=== PATIENT | female | born 1955 | race Caucasian/White ===

== ENCOUNTER 2016-12-22 14:02 | Emergency (ER) | payer OTHER, SELFPAY ==
[2016-12-22] MEDS ORDERED: Acetaminophen/Codeine 30-300mg Tablet ONE (15:12)
--- NOTE | 2016-12-22 16:32 | RAD ---
TWO VIEWS CHEST: Date: 12-22-16 Comparison: None. History: Trauma. FINDINGS: There is no pneumothorax, pleural fluid, lobar consolidation or alveolar edema. Heart and mediastin al contours are grossly unremarkable. No acute osseous abnormality. There is a subtle area of asymmetric density lateral to the left heart border on the frontal film, s ignificance uncertain. This likely represents volume loss and/or vascular structures. Nodule canno t be excluded but is felt less likely. IMPRESSION: Minimal asymmetric density lateral to the left heart border as above. As a conservative measure, a follow up two view examination of the chest in 4-6 weeks is advised. No lobar consolidation or alve olar edema. POS: [facility]
--- NOTE | 2016-12-22 16:33 | RAD ---
TWO VIEWS OF THE LUMBAR SPINE 12/22/16 COMPARISON: None. HISTORY: Trauma. FINDINGS: There is mild anterior wedging of the T11 vertebral body suggesting an age indeterminate anterior we dge compression fracture of T11. Five lumbar type vertebral bodies are present with intact pedicles on frontal imaging. Lateral imagi ng demonstrates normal lumbar spine vertebral body height and alignment. There is degenerative krishnamurthy e at the L5-S1 level with disc space narrowing and a vacuum disc. There is lower lumbar spine facet hypertrophy. IMPRESSION: 1. Mild age indeterminate anterior wedge compression fracture of T11. 2. No fracture of the lumbar spine noted. 3. Lower lumbar spine degenerative change. POS: [facility]
--- NOTE | 2016-12-22 16:43 | CT ---
CT OF THE THORACIC SPINE WITHOUT CONTRAST: Indication: Trauma. FINDINGS: There is a superior endplate compression fracture of T11 with approximate loss of 20% of height. This is new from the comparison dated 06-07-16. There is diffuse osteopenia. There is minimal retropulsion of bone fragments of the posterior super ior margin of T11. This causes minimal effacement of the ventral spinal canal without definite zayra l narrowing. No additional acute osseous abnormality is evident. There is a cavitated pulmonary nodule within the right upper lobe on image 32 measuring 9 mm. There is scattered emphysema within the lungs. IMPRESSION: 1. Superior endplate compression abnormality of T11 with approximate 20% loss of height. 2. Mild retropulsion of bone fragments from the posterior superior margin of T11 causes mild encroa chment on the anterior aspect of the spinal canal without severe narrowing. 3. No additional acute fracture is evident. 4. Multilevel spondylosis of the thoracic spine. 5. Cavitated pulmonary nodule in the right upper lobe. Dedicated CT of the thorax with IV contrast is recommended for additional characterization. Code T POS: [facility]
--- NOTE | 2016-12-22 17:49 | ERRECORD ---
[facility] EMERGENCY RECORD HPI FALL (15:20 LHOD) CHIEF COMPLAINT: Patient presents for evaluation of fall. HISTORIAN: History provided by patient. TIME COURSE: YESTERDAY APPROX. 1300 PT REPORTS SHE WAS PUSHING A WASHMACHINE ON A DAYLIN WHEN IT FELL, FALLING BACK ON HER. IT PINNED HER TO THE GROUND FOR APPROX. 20 MINUTES. RIGHT NOW SHE C/O PAIN FROM HER MID BACK TO LOWER BACK. UNCLEAR WHY SHE WAITED UNTIL TODAY TO COME TO ED. ROS (15:34 LHOD) CONSTITUTIONAL: Historian denies fever. CARDIOVASCULAR: Historian reports chest pain, REPORTS PAINS FROM MID CHEST TO LOWER BACK, FRONT AND BACK. RESPIRATORY: Historian denies shortness of breath. GI: Historian reports abdominal pain, denies nausea, denies vomiting. GENITOURINARY FEMALE: Historian denies hematuria. MUSCULOSKELETAL: Historian reports back pain, denies neck pain. SKIN: NO BRUISING OR WOUNDS. NEUROLOGIC: Historian denies focal weakness, denies headache. HEMO/LYMPHATIC: Historian reports easy bruising, ON ASA. NOTES: All systems reviewed, negative except as described above. PAST MEDICAL HISTORY MEDICAL HISTORY: Notes: VERIFIED 12-22-16, Past medical history includes neurological disease, ischemic cerebral vascular accident, transient ischemic attack, Notes: HEPATITIS C+, Flu vaccine up to date, Tetanus immunization up to date, Pneumococcal vaccine up to date, Past medical history includes cardiac history, coronary artery disease, Past medical history includes pulmonary disease, asthma, chronic obstructive pulmonary disease. Verified with patient 06/08/16. (TueDec 22, 2016 14:14 JPER) FEMALE SURGICAL HISTORY: VERIFIED 12-22-16, Surgical history of cholecystectomy, Surgical history of appendectomy. Verified with patient 06/08/16. (TueDec 22, 2016 14:14 JPER) PSYCHIATRIC HISTORY: Notes: VERIFIED 12-22-16, Psychiatric history includes, anxiety, bipolar disorder, depression. Verified with patient 06/08/16. (TueDec 22, 2016 14:14 JPER) SOCIAL HISTORY: Patient drinks socially, rarely, Patient denies drug use, Patient currently uses tobacco, smokes cigarettes, 5 per week. Verified with patient 06/08/16. (TueDec 22, 2016 14:14 JPER) NOTES: Nursing records reviewed. (16:31 LHOD) KNOWN ALLERGIES nkda (Unconfirmed) &a-1R&a+25V*p+0X*[id number]*c202B*c15G*c2P*p-0X&a-25V&a+1R Name: Leigha Gross : 1955 F61 MedRec: [id number] AcctNum: [id number] Prepared: TueDec 22, 2016 17:58 by Interface Page 1 of 3 pMD [facility] EMERGENCY RECORD No Known Drug Allergies (Unconfirmed) CURRENT MEDICATIONS SEROquel: TABLET : Strength - 100 mg : ORAL Patient Dose: 150 mg Oral once a day (in the morning). (14:15 JPER) Lexapro: TABLET : Strength - 20 mg : ORAL Patient Dose: once a day (in the morning). (14:16 JPER) omeprazole: CAPSULE,DELAYED RELEASE (ENTERIC COATED) : Strength - 20 mg : ORAL Patient Dose: once a day (in the morning). (14:16 JPER) VITAL SIGNS (14:12 JPER) VITAL SIGNS: BP: 166/91, Pulse: 80, Resp: 18, Temp: 98.1 (Tympanic), O2 sat: 96 on Room Air, Time: 12/22/2016 14:12. PHYSICAL EXAM (16:12 LHOD) CONSTITUTIONAL: Vital signs reviewed, Patient afebrile, Pulse normal, Blood pressure normal, Respiratory rate normal, Patient appears in pain, in moderate pain distress, Patient alert and oriented to person, place and time. HEAD: Head exam included findings of head atraumatic. EYES: Pupils equally round and reactive to light, Extraocular muscles intact. ENT: ENT exam normal. NECK: Neck exam included findings of normal range of motion, Trachea midline. RESPIRATORY CHEST: Respiratory exam included findings of no respiratory distress, Breath sounds clear, Tenderness, mild, diffusely. CARDIOVASCULAR: Cardiovascular exam included findings of heart rate regular rate and rhythm. ABDOMEN FEMALE: Abdominal exam included findings of abdomen nontender. BACK: Tenderness, MID TO LOWER MIDLINE, no pain with straight leg raise. UPPER EXTREMITY: Upper extremity exam normal. LOWER EXTREMITY: Lower extremity exam normal. NEURO: Neuro exam findings include patient oriented to person, place and time, Miguel coma scale 15, Speech normal, Gait normal, no focal motor deficits, no focal sensory deficits. SKIN: NO BRUISING OR OPEN WOUNDS. RADIOLOGYINTERPRETATION BACK: Lumbar spine films negative, Thoracic spine CT shows, compression fracture, subluxation of T11, no cord compression, Other findings: APPROX. 20 % LOSS OF HEIGHT. (17:48 LHOD) &a-1R&a+25V*p+0X*i7149K*c202B*c15G*c2P*p-0X&a-25V&a+1R Name: Leigha Gross : 1955 F61 MedRec: [id number] AcctNum: [id number] Prepared: TueDec 22, 2016 17:58 by Interface Page 2 of 3 pMD [facility] EMERGENCY RECORD CHEST: Films of the chest show, Other findings: T 11 COMPRESSION FX. (16:31 LHOD) MEDICATION ADMINISTRATION SUMMARY Drug Name: Tylenol-Codeine #3, Dose Ordered: 2 tab(s), Route: Oral, Status: Given, Time: 15:12 12/22/2016, Detailed record available in Medication Service section. DOCTOR NOTES (17:48 LHOD) TEXT: WITH CT OF T-SPINE---INCIDENTAL FINDING OF 4 MM NODULE RIGHT UPPER LUNG FIELD. FOLLOW UP OF THIS ADVISED. I DID COMMUNICATE TO THE PATIENT THAT SHE NEEDS TO HAVE THIS FOLLOWED UP BY HER PMD WITH CT SCAN. SHE STATES SHE UNDERSTANDS. PROBLEM LIST No recorded problems DIAGNOSIS (15:59 LHOD) FINAL: PRIMARY: T11 WEDGE FRACTURE. PRESCRIPTION (15:59 LHOD) Tylenol-Codeine #3: TABLET : 300 mg-30 mg : ORAL : Quantity: 1-2 Unit: tab(s) Route: ORAL Schedule: every 4 hours prn Dispense: 30 May substitute. Refills: No Refills . NOTES: No Refills. DISPOSITION PATIENT: Disposition Type: Discharge, Disposition: *Discharge Home, Condition: Good. (15:59 LHOD) Patient left the department. (17:41 [facility]) Nova: GERARDO=ENOC Allen, Beverly LHOD=MD Cristofer, Raúl &a-1R&a+25V*p+0X*q8420D*c202B*c15G*c2P*p-0X&a-25V&a+1R Name: Leigha Gross : 1955 F61 MedRec: [id number] AcctNum: [id number] Prepared: Greg Dec 22, 2016 17:58 by Interface Page 3 of 3 pMD MTDD
--- NOTE | 2016-12-22 18:10 | PICIS ---
[facility] EMERGENCY RECORD TRIAGE (TueDec 22, 2016 14:14 JPER) PATIENT: NAME: Leigha Gross, AGE: 61, GENDER: female, : [facility] 1955, TIME OF GREET: TueDec 22, 2016 14:03, PREFERRED LANGUAGE: Persian, RACE: WHITE, ETHNICITY: Not or , FALL RISK: NO, ECODE BILLING MAP: [facility], SSN: [id number], Zip Code: [address], KG WEIGHT: 77.11, PHONE: , , , PERSON ID: [id number], PCP: NO PCP. (TueDec 22, 2016 14:14 JPER) COMPLAINT: WASHING MACHINE FELL ON PT. (TueDec 22, 2016 14:14 JPER) ADMISSION: URGENCY: 4 Non Urgent, ADMISSION SOURCE: Home, TRANSPORT: Walk-in, BED: ED -03. (TueDec 22, 2016 14:14 JPER) ASSESSMENT: Assessment: PT C/O UPPER BACKPAIN ONSET YEST AFTER SHE SAYS A WASHING MACHINE FELL ON HER YEST. (TueDec 22, 2016 14:14 JPER) PAIN: Patient complains of pain described as, aching, on a scale 0-10 patient rates pain as 9, Pain is constant, No aggravating factors, No relieving factors. (TueDec 22, 2016 14:14 JPER) IMMUNIZATIONS: Flu vaccine up to date, Tetanus immunization up to date, Pneumococcal vaccine up to date. (TueDec 22, 2016 14:14 JPER) SIRS SCORING: Heart Rate 55-109 (0), Temp range 96.8-101.1 (0), respiratory rate 12-24 (0), Mental Status altered: no (0). (TueDec 22, 2016 14:14 JPER) TRIAGE SCREENING: Patient denies suicidal ideation, Patient denies presence of domestic violence. (TueDec 22, 2016 14:14 JPER) PROVIDERS: TRIAGE NURSE: Bevelry Allen RN. (TueDec 22, 2016 14:14 JPER) VITAL SIGNS: BP 166/91, Pulse 80, Resp 18, Temp 98.1, (Tympanic), O2 Sat 96, on Room Air, Time 12/22/2016 14:12. (14:12 JPER) PREVIOUS VISIT ALLERGIES: nkda. (TueDec 22, 2016 14:14 JPER) KNOWN ALLERGIES nkda (Unconfirmed) No Known Drug Allergies (Unconfirmed) CURRENT MEDICATIONS SEROquel: TABLET : Strength - 100 mg : ORAL Patient Dose: 150 mg Oral once a day (in the morning). (14:15 JPER) Lexapro: TABLET : Strength - 20 mg : ORAL Patient Dose: once a day (in the morning). (14:16 JPER) omeprazole: CAPSULE,DELAYED RELEASE (ENTERIC COATED) : Strength - 20 mg : ORAL Patient Dose: once a day (in the morning). (14:16 JPER) VITAL SIGNS (14:12 JPER) VITAL SIGNS: BP: 166/91, Pulse: 80, Resp: 18, Temp: 98.1 &a-1R&a+25V*p+0X*l5666K*c202B*c15G*c2P*p-0X&a-25V&a+1R Name: Leigha Gross : 1955 F61 MedRec: [id number] AcctNum: [id number] Prepared: TueDec 22, 2016 18:05 by Interface Page 1 of 7 pMD [facility] EMERGENCY RECORD (Tympanic), O2 sat: 96 on Room Air, Time: 12/22/2016 14:12. NURSING ASSESSMENT: BACK (14:25 JPER) CONSTITUTIONAL: Patient arrives ambulatory, Gait steady, History obtained from patient, Patient appears comfortable, Patient cooperative, Patient alert, Oriented to person, place and time, Skin warm, Skin dry, Skin normal in color, Mucous membranes pink, Mucous membranes moist, Patient complains of C/O UPPER BACK PAIN. PAIN: aching pain, to the upper back, on a scale 0-10 patient rates pain as 9, Pain exacerbated by nothing, Nothing has been tried to alleviate the pain. BACK: Right radial pulse +3(easily palpated, considered normal), Left radial pulse +3(easily palpated, considered normal). NECK: Neck assessment findings include trachea midline. NOTES: Emotional support needed and given. NURSING PROCEDURE: DISCHARGE NOTE (17:15 JPER) DISCHARGE: Patient eloped. SAFETY: Notes: PT LEFT WITHOUT DISCHARGE OR RX; NO TRANSPORTATION SEEN. NURSING PROCEDURE: NURSE NOTES (16:15 JPER) NURSES NOTES: Notes: PT READY FOR DC; WAITING RIDE TO ARRIVE. ORDER DETAILS Order Name: CT Thoracic Spine WO Con, Status: Active, Time: 14:58 12/22/2016, User: SIDRA, - Ordered for: MD Cleveland Lefayne, - Entered by: MD Cleveland Lefayne - TueDec 22, 2016 14:58, - Quantity: 1, Order Name: XR Chest Pa & Lat STANDARD, Status: Active, Time: 14:26 12/22/2016, User: SIDRA, - Ordered for: MD Cleveland Lefayne, - Entered by: MD Cleveland Lefayne - TueDec 22, 2016 14:26, - Quantity: 1, Order Name: XR Lumbar Spine 2 Or 3 View, Status: Active, Time: 14:26 12/22/2016, User: SIDRA, - Ordered for: MD Cleveland Lefayne, - Entered by: MD Cleveland Lefayne - TueDec 22, 2016 14:26, - Quantity: 1. MEDICATION ADMINISTRATION SUMMARY Drug Name: Tylenol-Codeine #3, Dose Ordered: 2 tab(s), Route: Oral, Status: Given, Time: 15:12 12/22/2016, Detailed record available in Medication Service section. MEDICATION SERVICE (15:12 OD) &a-1R&a+25V*p+0X*l3700I*c202B*c15G*c2P*p-0X&a-25V&a+1R Name: Leigha Gross : 1955 F61 MedRec: [id number] AcctNum: [id number] Prepared: TueDec 22, 2016 18:05 by Interface Page 2 of 7 pMD [facility] EMERGENCY RECORD Tylenol-Codeine #3: Order: Tylenol-Codeine #3 (acetaminophen/codeine phosphate) - Dose: 2 tab(s) : Oral Ordered by: Raúl Cleveland MD Entered by: Raúl Cleveland MD TueDec 22, 2016 14:26 Documented as given by: Beverly Allen RN TueDec 22, 2016 15:12 Patient, Medication, Dose, Route and Time verified prior to administration. Amount given: 2TABS, Site: Medication administered P.O., Correct patient, time, route, dose and medication confirmed prior to administration, Patient advised of actions and side-effects prior to administration, Allergies confirmed and medications reviewed prior to administration, Administered by THOMAS STUBBS, Patient in position of comfort, Side rails up, Cart in lowest position, Family at bedside. HPI FALL (15:20 LHOD) CHIEF COMPLAINT: Patient presents for evaluation of fall. HISTORIAN: History provided by patient. TIME COURSE: YESTERDAY APPROX. 1300 PT REPORTS SHE WAS PUSHING A WASHMACHINE ON A DAYLIN WHEN IT FELL, FALLING BACK ON HER. IT PINNED HER TO THE GROUND FOR APPROX. 20 MINUTES. RIGHT NOW SHE C/O PAIN FROM HER MID BACK TO LOWER BACK. UNCLEAR WHY SHE WAITED UNTIL TODAY TO COME TO ED. ROS (15:34 LHOD) CONSTITUTIONAL: Historian denies fever. CARDIOVASCULAR: Historian reports chest pain, REPORTS PAINS FROM MID CHEST TO LOWER BACK, FRONT AND BACK. RESPIRATORY: Historian denies shortness of breath. GI: Historian reports abdominal pain, denies nausea, denies vomiting. GENITOURINARY FEMALE: Historian denies hematuria. MUSCULOSKELETAL: Historian reports back pain, denies neck pain. SKIN: NO BRUISING OR WOUNDS. NEUROLOGIC: Historian denies focal weakness, denies headache. HEMO/LYMPHATIC: Historian reports easy bruising, ON ASA. NOTES: All systems reviewed, negative except as described above. PAST MEDICAL HISTORY MEDICAL HISTORY: Notes: VERIFIED 12-22-16, Past medical history includes neurological disease, ischemic cerebral vascular accident, transient ischemic attack, Notes: HEPATITIS C+, Flu vaccine up to date, Tetanus immunization up to date, Pneumococcal vaccine up to date, Past medical history includes cardiac history, coronary artery disease, Past medical history includes pulmonary disease, asthma, chronic obstructive pulmonary disease. Verified with patient 06/08/16. (TueDec 22, 2016 14:14 GERARDO) FEMALE SURGICAL HISTORY: VERIFIED 12-22-16, Surgical history of cholecystectomy, Surgical history of &a-1R&a+25V*p+0X*m9627H*c202B*c15G*c2P*p-0X&a-25V&a+1R Name: Leigha Gross : 1955 F61 MedRec: [id number] AcctNum: [id number] Prepared: TueDec 22, 2016 18:05 by Interface Page 3 of 7 pMD [facility] EMERGENCY RECORD appendectomy. Verified with patient 06/08/16. (TueDec 22, 2016 14:14 JPER) PSYCHIATRIC HISTORY: Notes: VERIFIED 12-22-16, Psychiatric history includes, anxiety, bipolar disorder, depression. Verified with patient 06/08/16. (TueDec 22, 2016 14:14 JPER) SOCIAL HISTORY: Patient drinks socially, rarely, Patient denies drug use, Patient currently uses tobacco, smokes cigarettes, 5 per week. Verified with patient 06/08/16. (TueDec 22, 2016 14:14 JPER) NOTES: Nursing records reviewed. (16:31 LHOD) PHYSICAL EXAM (16:12 LHOD) CONSTITUTIONAL: Vital signs reviewed, Patient afebrile, Pulse normal, Blood pressure normal, Respiratory rate normal, Patient appears in pain, in moderate pain distress, Patient alert and oriented to person, place and time. HEAD: Head exam included findings of head atraumatic. EYES: Pupils equally round and reactive to light, Extraocular muscles intact. ENT: ENT exam normal. NECK: Neck exam included findings of normal range of motion, Trachea midline. RESPIRATORY CHEST: Respiratory exam included findings of no respiratory distress, Breath sounds clear, Tenderness, mild, diffusely. CARDIOVASCULAR: Cardiovascular exam included findings of heart rate regular rate and rhythm. ABDOMEN FEMALE: Abdominal exam included findings of abdomen nontender. BACK: Tenderness, MID TO LOWER MIDLINE, no pain with straight leg raise. UPPER EXTREMITY: Upper extremity exam normal. LOWER EXTREMITY: Lower extremity exam normal. NEURO: Neuro exam findings include patient oriented to person, place and time, Miguel coma scale 15, Speech normal, Gait normal, no focal motor deficits, no focal sensory deficits. SKIN: NO BRUISING OR OPEN WOUNDS. EVENTS TRANSFER: Triage to Emergency Main ED -03. (TueDec 22, 2016 14:14 JPER) Removed from Emergency Main ED -03. (17:41 JPER) RADIOLOGYINTERPRETATION BACK: Lumbar spine films negative, Thoracic spine CT shows, compression fracture, subluxation of T11, no cord compression, Other findings: APPROX. 20 % LOSS OF HEIGHT. (17:48 LHOD) CHEST: Films of the chest show, Other findings: T 11 &a-1R&a+25V*p+0X*k4153Y*c202B*c15G*c2P*p-0X&a-25V&a+1R Name: Leigha Gross : 1955 F61 MedRec: [id number] AcctNum: [id number] Prepared: TueDec 22, 2016 18:05 by Interface Page 4 of 7 pMD [facility] EMERGENCY RECORD COMPRESSION FX. (16:31 LHOD) DOCTOR NOTES (17:48 LHOD) TEXT: WITH CT OF T-SPINE---INCIDENTAL FINDING OF 4 MM NODULE RIGHT UPPER LUNG FIELD. FOLLOW UP OF THIS ADVISED. I DID COMMUNICATE TO THE PATIENT THAT SHE NEEDS TO HAVE THIS FOLLOWED UP BY HER PMD WITH CT SCAN. SHE STATES SHE UNDERSTANDS. PROBLEM LIST No recorded problems DIAGNOSIS (15:59 LHOD) FINAL: PRIMARY: T11 WEDGE FRACTURE. DISPOSITION PATIENT: Disposition Type: Discharge, Disposition: *Discharge Home, Condition: Good. (15:59 LHOD) Patient left the department. (17:41 JPER) INSTRUCTION (16:00 LHOD) DISCHARGE: FRACTURE COMPRESSION VERTEBRAL. FOLLOWUP: Follow up with Specialist as soon as possible. SPECIAL: DO NOT LIFT MORE THAN 5 POUNDS. FOLLOW UP WITH AN ORTHOPEDIC BACK SPECIALIST SOON POSSIBLE. RETURN OR CALL 911 FOR INCREASING PAIN OR WEAKNESS. PRESCRIPTION (15:59 LHOD) Tylenol-Codeine #3: TABLET : 300 mg-30 mg : ORAL : Quantity: 1-2 Unit: tab(s) Route: ORAL Schedule: every 4 hours prn Dispense: 30 May substitute. Refills: No Refills . NOTES: No Refills. ADMIN (17:50 LHOD) DIGITAL SIGNATURE: MD Cleveland Lefayne. RESULTS (16:51 LHOD) RADIOLOGY: XR Lumbar Spine 2 Or 3 View Observe DT: TueDec 22, 2016 14:28, LSP3 TWO VIEWS OF THE LUMBAR SPINE 12/22/16 COMPARISON: None. HISTORY: Trauma. FINDINGS: &a-1R&a+25V*p+0X*p8955L*c202B*c15G*c2P*p-0X&a-25V&a+1R Name: Leigha Gross DOB: 1955 F61 MedRec: [id number] AcctNum: [id number] Prepared: TueDec 22, 2016 18:05 by Interface Page 5 of 7 pMD [facility] EMERGENCY RECORD There is mild anterior wedging of the T11 vertebral body suggesting an age indeterminate anterior we dge compression fracture of T11. Five lumbar type vertebral bodies are present with intact pedicles on frontal imaging. Lateral imagi ng demonstrates normal lumbar spine vertebral body height and alignment. There is degenerative krishnamurthy e at the L5-S1 level with disc space narrowing and a vacuum disc. There is lower lumbar spine facet hypertrophy. IMPRESSION: 1. Mild age indeterminate anterior wedge compression fracture of T11. 2. No fracture of the lumbar spine noted. 3. Lower lumbar spine degenerative change. POS: [facility] . XR Chest Pa & Lat STANDARD Observe DT: TueDec 22, 2016 14:28, CXR2 TWO VIEWS CHEST: Date: 12-22-16 Comparison: None. History: Trauma. FINDINGS: There is no pneumothorax, pleural fluid, lobar consolidation or alveolar edema. Heart and mediastin al contours are grossly unremarkable. No acute osseous abnormality. There is a subtle area of asymmetric density lateral to the left heart border on the frontal film, s ignificance uncertain. This likely represents volume loss and/or vascular structures. Nodule canno t be excluded but is felt less likely. IMPRESSION: Minimal asymmetric density lateral to the left heart border as above. As a conservative measure, a follow up two view examination of the chest in 4-6 weeks is advised. No lobar consolidation or alve olar edema. POS: [facility] . Nova: &a-1R&a+25V*p+0X*f3073M*c202B*c15G*c2P*p-0X&a-25V&a+1R Name: Leigha Gross : 1955 F61 MedRec: [id number] AcctNum: [id number] Prepared: TueDec 22, 2016 18:05 by Interface Page 6 of 7 pMD [facility] EMERGENCY RECORD JPER=ENOC Allen, Beverly LHOD=MD Cristofer, Raúl &a-1R&a+25V*p+0X*j4530H*c202B*c15G*c2P*p-0X&a-25V&a+1R Name: Leigha Gross : 1955 F61 MedRec: [id number] AcctNum: [id number] Prepared: Greg Dec 22, 2016 18:05 by Interface Page 7 of 7 pMD MTDD
[2016-12-22] MEDS ORDERED: Acetaminophen 325 MG TAB ONE (18:32)
== END 2016-12-22 17:41 | disposition home or self-care (01) ==
LOC: MADERS 14:02
DX: S22.080A Wedge compression fracture of T11-T12 vertebra, initial encounter for closed fracture (principal); F41.9 Anxiety disorder, unspecified; J44.9 Chronic obstructive pulmonary disease, unspecified; F31.9 Bipolar disorder, unspecified; F17.210 Nicotine dependence, cigarettes, uncomplicated; Z79.899 Other long term (current) drug therapy; W19.XXXA Unspecified fall, initial encounter
CPT/HCPCS: 71020; 72100; 72128; J7620

== ENCOUNTER 2017-03-23 14:29 | Emergency (ER) | payer SELFPAY ==
--- NOTE | 2017-03-23 15:38 | RAD ---
2 VIEW CHEST: Date: 03/23/17 HISTORY: Cough, COPD. Correlation made to 2 view exam of 12/22/16. FINDINGS: The lungs appear clear. No infiltrate seen. Heart and mediastinum appear unremarkable. Vascular lilli ings are normal. Osseous structures are unremarkable. Mild wedging of the lower thoracic vertebra is stable. IMPRESSION: No evidence of acute process. POS: [facility]
[2017-03-23 15:42] LABS: #Basophils 0.2 thou/uL (0.0-0.2); #Eosinphils 0.5 thou/uL (0.0-0.7); #Lymphocytes 3.2 thou/uL (1.20-3.40); #Monocytes 0.6 thou/uL (0.11-0.59); #Neutrophils 5.3 thou/uL (1.40-6.50); %Basophils 2.4 % (0.0-1.0); %Eosinophils 5.4 % (0.0-10.0); %Lymphocytes 32.6 % (21.0-51.0); %Monocytes 6.3 % (0.0-10.0); %Neutrophils 53.4 % (42.0-75.0); Hemoglobin 15.7 g/dL (12.0-16.0); Mean Corpuscular HGB CONC 33.8 g/dL (32.0-36.0); Mean Corpuscular Hemoglobin 29.4 pg (27.0-31.0); Mean Platelet Volume 8.2 fL (7.4-10.4); Platelet Count 358 thou/uL (130-400); RBC Distribution Width 13.2 % (11.5-14.5); Red Blood Cell (RBC) Count 5.34 mill/uL (4.20-5.40)
[2017-03-23 15:55] LABS: ALT (SGPT) 33 U/L (0-55); AST (SGOT) 37 U/L (5-34); Albumin 4.3 g/dL (3.5-5.0); Alkaline Phosphatase 187 U/L (40-150); Anion Gap 15 mmol/L (10-20); BUN (Urea Nitrogen) 10 mg/dL (9.8-20.1); Bilirubin, Total 0.5 mg/dL (0.2-1.2); Calc. Creatinine Clearance 0 mL/min (70-130); Calcium 10.4 mg/dL (7.8-10.44); Carbon Dioxide 24 mmol/L (22-29); Chloride 101 mmol/L (98-107); Estimated GFR-MDRD 55; Globulin 2.7 g/dL (2.4-3.5); Glucose 99 mg/dL (70-105); Potassium 4.4 mmol/L (3.5-5.1); Sodium 136 mmol/L (136-145)
[2017-03-23] MEDS ORDERED: predniSONE 20 MG TAB ONE (17:00)
[2017-03-23] MEDS ORDERED: Doxycycline 100 MG CAP ONE (17:00)
== END 2017-03-23 17:25 | disposition home or self-care (01) ==
LOC: MADERS 14:29
DX: J44.1 Chronic obstructive pulmonary disease with (acute) exacerbation (principal); I25.10 Atherosclerotic heart disease of native coronary artery without angina pectoris; J45.909 Unspecified asthma, uncomplicated; F31.9 Bipolar disorder, unspecified; F41.9 Anxiety disorder, unspecified; F17.210 Nicotine dependence, cigarettes, uncomplicated; Z86.73 Personal history of transient ischemic attack (TIA), and cerebral infarction without residual deficits; Z79.899 Other long term (current) drug therapy
CPT/HCPCS: 36415; 71020; 80053; 83880; 85025; 93005; J7506; J7620

== ENCOUNTER 2017-05-30 12:36 | Emergency (ER) | payer SELFPAY | END 2017-05-30 13:03 | disposition home or self-care (01) | LOC: MADERS 12:36 | DX: K13.0 Diseases of lips (principal); I25.10 Atherosclerotic heart disease of native coronary artery without angina pectoris; J44.9 Chronic obstructive pulmonary disease, unspecified; F41.9 Anxiety disorder, unspecified; F31.9 Bipolar disorder, unspecified; F17.210 Nicotine dependence, cigarettes, uncomplicated; Z86.73 Personal history of transient ischemic attack (TIA), and cerebral infarction without residual deficits; Z86.19 Personal history of other infectious and parasitic diseases; Z79.899 Other long term (current) drug therapy | CPT/HCPCS: 99283 ==